=== PATIENT | male | born 1980 | race Caucasian/White ===

== ENCOUNTER 2021-01-21 19:39 | Inpatient (IN) | payer OTHER ==
[2021-01-21 22:35] VITALS: BMI 44.1
[2021-01-21] MEDS ORDERED: DICYCLOMINE HCL 10 MG CAPSULE PO PRN (23:12)
[2021-01-21] MEDS ORDERED: IBUPROFEN 400 MG TABLET (FP) PO PRN (23:12)
[2021-01-21] MEDS ORDERED: MENTHOL/PHENOL 1 EACH UD MM PRN (23:12)
[2021-01-21] MEDS ORDERED: BISMUTH SUBSALICYLATE 524 MG/30 ML UD PO PRN (23:12)
[2021-01-21] MEDS ORDERED: MAGNESIUM CITRATE 300 ML BOTTLE PO PRN (23:12)
[2021-01-21] MEDS ORDERED: LORazepam 1 MG TABLET PO PRN (23:12)
[2021-01-21] MEDS ORDERED: P-EPHED 60MG/TRIPROLIDI 2.5MG TABLET PO PRN (23:12)
[2021-01-21] MEDS ORDERED: MAGNESIUM HYDROX 2400MG/30ML ORAL SUSPENSION 30 ML CUP PO PRN (23:12)
[2021-01-21] MEDS ORDERED: ACETAMINOPHEN 325 MG TABLET (FP) PO PRN ×2 (23:12)
[2021-01-21] MEDS ORDERED: ONDANSETRON *ODT* 4 MG TABLET SL PRN (23:12)
[2021-01-21] MEDS ORDERED: MAG HYDROX/AL HYDROX/SIMETH 30 ML UNIT-DOSE CUP PO PRN (23:12)
[2021-01-21] MEDS ORDERED: guaiFENesin 200 MG/10 ML 10 ML UNIT-DOSE CUPS PO PRN (23:12)
[2021-01-22] MEDS ORDERED: PNEUMOC 13-VAL CONJ-DIP CRM/PF 0.5 ML DISP.SYRIN IM ONE (00:56)
[2021-01-22] MEDS: LIDOCAINE PATCH REMOVAL MC SCH ×2 (01:24→22:09)
[2021-01-22] MEDS: LORazepam 2 MG TABLET PO SCH ×5 (01:24→22:08)
[2021-01-22] MEDS: PRENATAL VITAMINS W/ FOLIC ACID TABLET (FP) PO SCH (10:10)
[2021-01-22] MEDS: LIDOCAINE 5% TOPICAL PATCH TP SCH (10:11)
[2021-01-22] MEDS: hydrOXYzine PAMOATE 25 MG CAPSULE (FP) PO PRN (10:11)
[2021-01-22 10:35] LABS: HEMATOCRIT 42.2 % (35.4-49); HEMOGLOBIN 14.6 GM/dL (11.7-16.9); MCH 32.3 pg (25.7-33.7); MCHC 34.6 g/dl (32.0-35.9); MEAN CELL VOLUME 93.3 fl (80-96); MEAN PLT VOLUME 8.3 fl (7.5-11.1); PLATELET COUNT 220 K/MM3 (134-434); RBC 4.52 M/mm3 (4.00-5.60); WHITE BLOOD COUNT 6.2 K/mm3 (4.0-10.0)
[2021-01-22 10:38] LABS: ALBUMIN 4.2 g/dl (3.4-5.0); BLOOD UREA NITROGEN 13.8 mg/dL (7-18); CALCIUM 8.5 mg/dL (8.5-10.1)
[2021-01-22 10:42] LABS: BILIRUBIN,TOTAL 0.7 mg/dL (0.2-1); TOT PROT 7.2 g/dl (6.4-8.2)
[2021-01-22] MEDS ORDERED: PNEUMOCOCCAL 23 VACCINE 0.5 ML VIAL IM ONE (12:00)
[2021-01-22] MEDS: METHYL SALICYLATE/MENTHOL OINT 30 GM TUBE TP SCH ×2 (14:45→22:08)
[2021-01-22] MEDS: MELATONIN 5 MG TABLETS PO SCH (22:08)
[2021-01-22] MEDS: METHOCARBAMOL 500 MG TABLET PO PRN (22:08)
[2021-01-22] MEDS: THIAMINE HCL 100 MG TABLET (FP) PO SCH (22:08)
[2021-01-23] MEDS: LORazepam 1 MG TABLET PO SCH ×4 (05:45→22:12)
[2021-01-23 08:20] LABS: URINE APPEARANCE CLEAR; URINE BILIRUBIN NEGATIVE (NEGATIVE); URINE COLOR YELLOW; URINE GLUCOSE (UA) NEGATIVE (NEGATIVE); URINE KETONE NEGATIVE (NEGATIVE); URINE LEUK ESTERASE NEGATIVE (NEGATIVE); URINE NITRITE NEGATIVE (NEGATIVE); URINE PROTEIN NEGATIVE (NEGATIVE)
[2021-01-23] MEDS: PRENATAL VITAMINS W/ FOLIC ACID TABLET (FP) PO SCH (10:12)
[2021-01-23] MEDS: hydrOXYzine PAMOATE 25 MG CAPSULE (FP) PO PRN (10:13)
[2021-01-23] MEDS: METHOCARBAMOL 500 MG TABLET PO PRN (10:13)
[2021-01-23] MEDS: METHYL SALICYLATE/MENTHOL OINT 30 GM TUBE TP SCH ×2 (10:15→22:13)
[2021-01-23] MEDS: LIDOCAINE 5% TOPICAL PATCH TP SCH (10:15)
[2021-01-23] MEDS: MELATONIN 5 MG TABLETS PO SCH (22:13)
[2021-01-23] MEDS: THIAMINE HCL 100 MG TABLET (FP) PO SCH (22:13)
[2021-01-23] MEDS: LIDOCAINE PATCH REMOVAL MC SCH (22:13)
[2021-01-24] MEDS ORDERED: LORazepam 0.5 MG TABLET PO PRN
[2021-01-24] MEDS: LORazepam 0.5 MG TABLET PO SCH ×4 (05:49→22:50)
[2021-01-24] MEDS: LIDOCAINE 5% TOPICAL PATCH TP SCH (09:56)
[2021-01-24] MEDS: PRENATAL VITAMINS W/ FOLIC ACID TABLET (FP) PO SCH (09:57)
[2021-01-24] MEDS: METHOCARBAMOL 500 MG TABLET PO PRN ×2 (09:57→22:50)
[2021-01-24] MEDS: hydrOXYzine PAMOATE 25 MG CAPSULE (FP) PO PRN ×3 (09:57→22:50)
[2021-01-24] MEDS: METHYL SALICYLATE/MENTHOL OINT 30 GM TUBE TP SCH ×2 (09:58→22:52)
[2021-01-24 10:11] LABS: SARS-CoV-2 NAA Not Detected (Not Detected)
[2021-01-24] MEDS: THIAMINE HCL 100 MG TABLET (FP) PO SCH (22:50)
[2021-01-24] MEDS: LIDOCAINE PATCH REMOVAL MC SCH (22:50)
[2021-01-24] MEDS: MELATONIN 5 MG TABLETS PO SCH (22:50)
[2021-01-25] MEDS ORDERED: LORazepam 0.5 MG TABLET PO ONE (05:00)
[2021-01-25 09:42] VITALS: BP 119/77; PULSE 116; TEMP 96.9
== END 2021-01-25 09:57 | disposition home or self-care (01) | DRG 775 ==
LOC: YASAS 19:39 → MERGE 23:22 → Y6N 23:22
PROVIDERS: ADMIT Allergy & Immunology; ATTEND Allergy & Immunology
PROC: HZ2ZZZZ Detoxification Services for Substance Abuse Treatment (ICD-10-PCS; principal; 2021-01-21)
DX: F10.230 Alcohol dependence with withdrawal, uncomplicated (principal); Z72.0 Tobacco use; F10.280 Alcohol dependence with alcohol-induced anxiety disorder; F10.282 Alcohol dependence with alcohol-induced sleep disorder; I10 Essential (primary) hypertension; E78.5 Hyperlipidemia, unspecified; K70.30 Alcoholic cirrhosis of liver without ascites; M25.562 Pain in left knee; G89.29 Other chronic pain; R26.89 Other abnormalities of gait and mobility; Z62.810 Personal history of physical and sexual abuse in childhood; E66.01 Morbid (severe) obesity due to excess calories; Z68.41 Body mass index [BMI] 40.0-44.9, adult
CPT/HCPCS: 36415; 80053; 81003; 82962; 85027; 86780; 90732; 93005; 93010; C9803; G0009; U0003; U0005

== ENCOUNTER 2021-09-14 13:32 | Inpatient (IN) | payer SELFPAY ==
[2021-09-14] MEDS ORDERED: IBUPROFEN 400 MG TABLET (FP) PO PRN (14:54)
[2021-09-14] MEDS ORDERED: ACETAMINOPHEN 325 MG TABLET (FP) PO PRN (14:54)
[2021-09-14] MEDS ORDERED: BISMUTH SUBSALICYLATE 262 MG/15 ML BTL PO PRN (14:54)
[2021-09-14] MEDS ORDERED: MAGNESIUM HYDROX 2400MG/30ML ORAL SUSPENSION 30 ML CUP PO PRN (14:54)
[2021-09-14] MEDS ORDERED: MAGNESIUM CITRATE 300 ML BOTTLE PO PRN (14:54)
[2021-09-14] MEDS ORDERED: ONDANSETRON *ODT* 4 MG TABLET SL PRN (14:54)
[2021-09-14] MEDS ORDERED: NICOTINE 10 MG CARTRIDGE (INHALER) IH PRN (14:54)
[2021-09-14] MEDS ORDERED: MENTHOL/PHENOL 1 EACH UD MM PRN (14:54)
[2021-09-14 15:01] VITALS: BMI 39.0
[2021-09-14] MEDS: hydrOXYzine PAMOATE 25 MG CAPSULE (FP) PO SCH ×2 (18:05→22:25)
[2021-09-14] MEDS: PRENATAL VITAMINS W/ FOLIC ACID TABLET (FP) PO SCH (18:05)
[2021-09-14] MEDS: LORazepam 2 MG TABLET PO SCH ×2 (18:05→22:25)
[2021-09-14] MEDS: ACETAMINOPHEN 325 MG TABLET (FP) PO PRN (18:08)
[2021-09-14] MEDS: MELATONIN 5 MG TABLETS PO SCH (22:25)
[2021-09-14] MEDS: THIAMINE HCL 100 MG TABLET (FP) PO SCH (22:25)
[2021-09-14] MEDS: METHOCARBAMOL 500 MG TABLET PO PRN (22:27)
[2021-09-15] MEDS: LORazepam 2 MG TABLET PO SCH ×4 (05:26→22:16)
[2021-09-15] MEDS: hydrOXYzine PAMOATE 25 MG CAPSULE (FP) PO SCH ×5 (05:26→22:16)
[2021-09-15] MEDS: PRENATAL VITAMINS W/ FOLIC ACID TABLET (FP) PO SCH (10:08)
[2021-09-15] MEDS ORDERED: FLU VACC QS2021-22(6MOS UP)/PF 60 MCG/0.5 ML SYRINGE IM ONE (12:00)
[2021-09-15 13:55] LABS: HEMATOCRIT 41.8 % (35.4-49); HEMOGLOBIN 14.1 GM/dL (11.7-16.9); MCH 31.4 pg (25.7-33.7); MCHC 33.6 g/dl (32.0-35.9); MEAN CELL VOLUME 93.4 fl (80-96); MEAN PLT VOLUME 8.2 fl (7.5-11.1); PLATELET COUNT 200 10^3/uL (134-434); RBC 4.47 M/mm3 (4.00-5.60); RDW 15.5 % (11.9-15.9)
[2021-09-15 14:19] LABS: ALBUMIN 3.7 g/dl (3.4-5.0); BLOOD UREA NITROGEN 18.4 mg/dL (7-18)
[2021-09-15 14:24] LABS: BILIRUBIN,TOTAL 0.7 mg/dL (0.2-1); TOT PROT 6.7 g/dl (6.4-8.2)
[2021-09-15 16:10] LABS: HIV INTERPRETATION NEGATIVE (NEGATIVE)
[2021-09-15] MEDS: MAG HYDROX/AL HYDROX/SIMETH 30 ML UNIT-DOSE CUP PO PRN (21:09)
[2021-09-15] MEDS: MELATONIN 5 MG TABLETS PO SCH (22:16)
[2021-09-15] MEDS: THIAMINE HCL 100 MG TABLET (FP) PO SCH (22:16)
[2021-09-16] MEDS: LORazepam 1 MG TABLET PO PRN ×2 (02:12→18:02)
[2021-09-16] MEDS: LORazepam 1 MG TABLET PO SCH ×4 (06:17→22:09)
[2021-09-16] MEDS: hydrOXYzine PAMOATE 25 MG CAPSULE (FP) PO SCH ×5 (06:18→22:09)
[2021-09-16] MEDS: PRENATAL VITAMINS W/ FOLIC ACID TABLET (FP) PO SCH (10:28)
[2021-09-16] MEDS: METHOCARBAMOL 500 MG TABLET PO PRN (20:47)
[2021-09-16] MEDS: THIAMINE HCL 100 MG TABLET (FP) PO SCH (22:09)
[2021-09-16] MEDS: ACETAMINOPHEN 325 MG TABLET (FP) PO PRN (22:11)
[2021-09-16] MEDS: MELATONIN 5 MG TABLETS PO SCH (23:58)
[2021-09-17] MEDS ORDERED: LORazepam 0.5 MG TABLET PO PRN
[2021-09-17] MEDS: LORazepam 0.5 MG TABLET PO SCH ×4 (05:47→22:28)
[2021-09-17] MEDS: hydrOXYzine PAMOATE 25 MG CAPSULE (FP) PO SCH ×5 (05:48→22:27)
[2021-09-17] MEDS: PRENATAL VITAMINS W/ FOLIC ACID TABLET (FP) PO SCH (10:10)
[2021-09-17] MEDS: MAG HYDROX/AL HYDROX/SIMETH 30 ML UNIT-DOSE CUP PO PRN (17:42)
[2021-09-17] MEDS: THIAMINE HCL 100 MG TABLET (FP) PO SCH (22:29)
[2021-09-17] MEDS: MELATONIN 5 MG TABLETS PO SCH (22:29)
[2021-09-18] MEDS: METHOCARBAMOL 500 MG TABLET PO PRN (00:31)
[2021-09-18] MEDS ORDERED: LORazepam 0.5 MG TABLET PO ONE (05:00)
[2021-09-18] MEDS: hydrOXYzine PAMOATE 25 MG CAPSULE (FP) PO SCH ×2 (05:44→10:36)
[2021-09-18 09:19] VITALS: BP 143/85; PULSE 106; TEMP 96.9
[2021-09-18] MEDS: PRENATAL VITAMINS W/ FOLIC ACID TABLET (FP) PO SCH (10:36)
== END 2021-09-18 09:46 | disposition home or self-care (01) | DRG 774 ==
LOC: YASAS 13:32 → Y3N 15:08
PROVIDERS: ADMIT Allergy & Immunology; ATTEND Allergy & Immunology
PROC: HZ2ZZZZ Detoxification Services for Substance Abuse Treatment (ICD-10-PCS; principal; 2021-09-14)
DX: F10.230 Alcohol dependence with withdrawal, uncomplicated (principal); F10.220 Alcohol dependence with intoxication, uncomplicated; F14.10 Cocaine abuse, uncomplicated; F12.10 Cannabis abuse, uncomplicated; F19.24 Other psychoactive substance dependence with psychoactive substance-induced mood disorder; I10 Essential (primary) hypertension; E78.5 Hyperlipidemia, unspecified; E66.01 Morbid (severe) obesity due to excess calories; Z68.39 Body mass index [BMI] 39.0-39.9, adult; K74.60 Unspecified cirrhosis of liver; Z87.891 Personal history of nicotine dependence; Z56.0 Unemployment, unspecified
CPT/HCPCS: 36415; 80053; 82947; 82962; 83036; 85027; 86780; 87389; C9803; U0003; U0005